=== PATIENT | male | born 1960 | race Caucasian/White ===

== ENCOUNTER 2020-02-20 12:30 | Outpatient (RCR) | payer OTHER, SELFPAY ==
--- NOTE | 2020-01-16 09:53 | PTOPEVAL ---
INITIAL PHYSICAL THERAPY EVALUATION and PLAN OF CARE Thank you for referring Axel to [facility]. Axel will be seen in PT 1x/wk x 6 wks. Please review, sign, date and return this plan of care YVES. I agree with and certify that the following plan of care is medically necessary. Referring Physician Date Admitting Provider: Attending Provider: Shola Cárdenas MD Referring Provider: *PT Outpatient Evaluation Start: 01/16/20 08:12 Freq: Status: Active Protocol: Document 01/16/20 08:10 ANGIE (Rec: 01/16/20 09:47 ANGIE [id number]) Therapy Assessment Status Assessment Status Assessment Status Evaluation Outpatient Past Medical History Neurological History Hx Neurological Disorders No Significant History Cardiovascular History Hx Hypercholesterolemia Yes Respiratory History Hx Respiratory Disorders No Significant History Gastrointestinal History Hx Gastroesophageal Reflux Disease Yes Genitourinary History Hx Prostatectomy Yes: 2010 Musculoskeletal History Hx Fractures Yes: C5 spinal process fx Hx Orthopedic Surgery Yes: R patellar tendon tear 1997,crush inj R hand Endocrine History Hx Endocrine Disorders No Significant History Other History Hx Cancer Yes: prostate cancer 2009 Evaluation Information Problem Diagnosis penile pain, chronic; male pelvic pain Onset september 2019 Subjective Information 2 nights of terrible back pain Query Text:As Reported By Patient/ - felt like he was leaking, Family felt like a drop of urine at end of penis saw PT for back pain testing of urine - blood - thought was kidney stone subsequent blood urine tests - have been negative Sensation of constant urinary leakage but no leakage. Cystosomy - normal Bowels - can be constipated or have looseness - never has had solid bowel movements ([place] Stool Chart - type 6) When bladder is completely full - when he is the most comfortable. Did try Kegel exercises - made symptoms worse Diagnostic Tests Other Tests For This Problem Yes: cystostomy Prior Level of Function Activity Level (Last 3 Months) Occupation retired - computer security coordinator at
--- NOTE | 2020-02-20 16:33 | PTOPEVAL ---
PHYSICAL THERAPY DISCHARGE SUMMARY Thank you for referring Kg Castellon to [facility]. He was seen for a total of 6 visits. Increased progress had been made in regards to increase sensory symptoms in penis and surround region, but most of his symptoms returned after performing yard work. He is to continue with relaxation exercises and self massage in regions of increased tightness. I agree with Axel's discharge from physical therapy. Referring Physician Date Admitting Provider: Attending Provider: Shola Cárdenas MD Referring Provider: *PT Outpatient Evaluation Start: 01/16/20 08:12 Freq: Status: Active Protocol: Document 02/20/20 12:30 ANGIE (Rec: 02/20/20 16:33 ANGIE [id number]) Therapy Assessment Status Assessment Status Assessment Status Discharge Evaluation Information Problem Subjective Information Axel reports that he continued Query Text:As Reported By Patient/ to do better in regards to Family urine fullness sensation in penis until raking leaves and doing yard work later last week. Return of all symptoms occurred with exception of drop of urine sensation at tip of penis. He still is does not feel urge sensation from bladder for need to urinate but times his urinations - time and amount of liquid ingested. He continues to report no urinary leakage. Pain Assessment Timing of Pain Assessment Timing of Pain Assessment Assessment Self Report Self Report Pain Level 0 Pain Score Pain Score 0: Self Report PT Clinical Summary Clinical Summary Protocol: PTEVCODE PT Clinical Summary Reassessement this date reveals mild return of L sided tissue tension - lateral to bladder as well caudally into L side of penile base. This tissue tension had been almost gone prior to the yard work. Within the last few weeks, Axel had reported that he had a few days of feeling normal again but this all changed with the yard work. Manual therapy had been effective - but at end point with it at this time. We did review relaxation exercises for
== END 2020-04-15 23:59 | disposition home or self-care (01) ==
LOC: ANHHIPT 12:30
PROVIDERS: PCP Physician Assistant; Visit Provider Urology
DX: M54.9 Dorsalgia, unspecified (principal)
CPT/HCPCS: 97140; 97161

== ENCOUNTER 2022-09-02 10:08 | Emergency (ER) | payer OTHER, SELFPAY ==
[2022-09-02 10:37] VITALS: BP 120/58; PULSE 98; RESP 16; TEMP 36.8; O2SAT 99
--- NOTE | 2022-09-02 10:58 | ED.SKABFB ---
HPI - Skin/Abscess/Foreign Bdy General Chief complaint: Skin/Abscess/Foreign Body Stated complaint: shingles Time Seen by Provider: 09/02/22 10:59 Source: patient, RN notes reviewed and old records reviewed Mode of arrival: ambulatory Limitations: no limitations History of Present Illness HPI narrative: 61-year-old male presents to the [facility] with a rash to the left side of chest wrapping around to his back. Stopping at midline both anterior and posterior. Itching and burning started Tuesday. Rash started on Tuesday MD complaint: rash Onset (ago): day(s) (4) Related Data Allergies Allergy/AdvReac Type Severity Reaction Status Date / Time glycopyrrolate Allergy Severe HOT FLASHES Verified 09/02/22 10:41 poison karen extract Allergy Swelling Verified 09/02/22 10:41 poison oak extract Allergy Swelling Verified 09/02/22 10:41 Penicillins AdvReac Unknown UNKNOWN Verified 09/02/22 10:41 Review of Systems Review of Systems: All systems reviewed & are unremarkable except as noted in HPI and below Constitutional: Constitutional: Reports no additional constitutional complaints, Denies chills and Denies fever(s) Eyes: Eyes: Reports no additional eye complaints ENT: Reports system reviewed and no additional complaints, except as documented Cardiovascular: Cardiovascular: Reports no additional cardiovascular complaints Respiratory: Respiratory: Reports no additional respiratory complaints Gastrointestinal: Gastrointestinal: Reports no additional gastrointestinal complaints Musculoskeletal: Musculoskeletal: Reports no additional musculoskeletal complaints Integumentary/Breasts: Skin/Breast: Reports as per HPI and Reports rash Neurologic: Reports system reviewed and no additional complaints, except as documented Psychiatric: Psychiatric: Reports no additional psychiatric complaints Allergic/Immunologic: Allergic/Immunologic: Reports no additional allergic/immunologic complaints [facility] Past Medical History Medical History Alcoholism Allergies Arthritis Fractured spine Hyperlipidemia Prostate cancer (~2009) Surgical History Surgical History H/O fasciotomy H/O hand surgery H/O knee surgery History of prostatectomy (~2009) Family History Family History Father Asthma Malignant neoplasm of prostate Mother Breast cancer Carcinoma of colon Sibling Asthma Social History Social History Smoking status: Never smoker Second hand tobacco smoke exposure: No Alcohol intake: former Alcohol use details: quit drinking in 09/2002 Substance use: never Comments At the time of my signature, I reviewed and agree with the nursing past medical, surgical, social, and family history. There is no relevant family history pertinent to the patient complaint. Exam Const: General: healthy appearing, no acute distress, alert and well nourished Nutritional Appearance: well nourished Orientation/consciousness: patient oriented x3 Limitations: no limitations HENMT: Head: normal to inspection Ears: external ears normal Eyes: General: appearance normal, both eyes and all related structures Conjunctivae: conjunctivae normal Pupils: Equal, round and reactive pupils present Neck: Neck: normal visual inspection, no lymphadenopathy and no meningeal signs Chest: Chest palpation & inspection: normal inspection of the chest Resp: Effort & Inspection: normal respiratory effort and no use of accessory muscles Auscultation: clear to auscultation bilaterally, no crackles, no rales, no rhonchi and no wheezes Cardio: Rate: regular rate Rhythm: regular rhythm Skin: General skin exam: normal color Wounds: no wounds Full body images: 1. Red raised blistery rash wraps around to back. Neuro: General: patie
== END 2022-09-02 11:15 | disposition home or self-care (01) ==
PROVIDERS: Emergency Provider Nurse Practitioner
DX: B02.9 Zoster without complications (principal); M19.90 Unspecified osteoarthritis, unspecified site; Z85.46 Personal history of malignant neoplasm of prostate; Z90.79 Acquired absence of other genital organ(s)
CPT/HCPCS: 99213; G0463

== ENCOUNTER → 2023-04-19 16:14 | Outpatient (CLI) | payer OTHER, SELFPAY ==
--- NOTE | ~2023-04-19 | MR_ITS ---
EXAMINATION: MR cervical spine wo con DATE: 04/19/2023 17:24 INDICATION: Neck pain. Cervical radiculopathy. TECHNIQUE: Magnetic resonance imaging (MRI) of the cervical spine was performed without intravenous c ontrast. Sequences included sagittal T2-weighted FSE, sagittal T2-weighted FS FSE, sagittal T1-weight ed FSE, axial MERGE, and axial T2-weighted FSE. COMPARISON: None FINDINGS: There is 2 mm retrolisthesis of C5 on C6. There is mild chronic anterior wedging of C5 vert ebral body. There is an old fracture of C7 spinous process. There is mildly decreased disc height at C3-C4, moderately decreased disc height at C4-C5, severely decreased disc height at C5-C6, and modera tely decreased disc height at C6-C7. The spinal cord signal intensity is normal. The following disc l evels are specifically discussed: C2-C3: The disc does not extend beyond the endplate margin. There is no uncovertebral joint osteoarth ritis. There is mild right and moderate left facet joint osteoarthritis. There is no neural foraminal stenosis. There is no central canal stenosis. C3-C4: There is a right central extrusion. There is moderate bilateral uncovertebral joint osteoarthr itis. There is moderate bilateral facet joint osteoarthritis. There is mild bilateral neural foramina l stenosis. There is mild central canal stenosis with ventral indentation of the spinal cord. C4-C5: The disc is bulging. There is severe bilateral uncovertebral joint osteoarthritis. There is se ada bilateral facet joint osteoarthritis. There is moderate bilateral neural foraminal stenosis. The re is mild central canal stenosis. C5-C6: The disc is bulging. There is severe bilateral uncovertebral joint osteoarthritis. There is mi ld bilateral facet joint osteoarthritis. There is moderate bilateral neural foraminal stenosis. There is moderate central canal stenosis with ventral and dorsal indentation of the spinal cord. C6-C7: There is a central extrusion. There is severe bilateral uncovertebral joint osteoarthritis. Th ere is mild bilateral facet joint osteoarthritis. There is mild bilateral neural foraminal stenosis. There is moderate central canal stenosis with ventral and dorsal indentation of the spinal cord. C7-T1: The disc does not extend beyond the endplate margin. There is mild bilateral uncovertebral alexa nt osteoarthritis. There is no facet joint osteoarthritis. There is no neural foraminal stenosis. The re is no central canal stenosis. IMPRESSION: 1. Severe cervical spondylosis. Reviewed, dictated and finalized at location A.
== END ==
PROVIDERS: PCP Chiropractor; Visit Provider Chiropractor
DX: M54.12 Radiculopathy, cervical region (principal); M62.40 Contracture of muscle, unspecified site; M43.02 Spondylolysis, cervical region
CPT/HCPCS: 72141